=== PATIENT | female | born 1965 | race Caucasian/White ===

== ENCOUNTER 2017-07-25 11:04 | Emergency (ER) | payer OTHER ==
[~2017-07-25] VITALS: Ht 157.5 cm; Wt 72.2 kg
[2017-07-25] MEDS ORDERED: SODIUM CHLORIDE 0.9% 1,000ML IVBOLUS ONE (12:30)
[2017-07-25] MEDS ORDERED: SODIUM CHLORIDE FLUSH 10ML SYR IVF ONE (12:30)
[2017-07-25] MEDS ORDERED: OMNIPAQUE 350 MG/ML, 100ML BOTTLE ONE (13:38)
[2017-07-25] MEDS ORDERED: AMOXICILLIN/CLAV 500-125MG TABLET PO ONE (14:30)
[2017-07-25 14:49] VITALS: BP 110/64
== END 2017-07-25 14:51 | disposition home or self-care (01) ==
LOC: ED 11:53
DX: J02.9 Acute pharyngitis, unspecified (principal); F17.200 Nicotine dependence, unspecified, uncomplicated; Z90.49 Acquired absence of other specified parts of digestive tract; Z90.710 Acquired absence of both cervix and uterus
CPT/HCPCS: 70491; 96360; 99284; J7030; Q9967

== ENCOUNTER 2017-08-04 08:17 | Emergency (ER) | payer OTHER ==
[~2017-08-04] VITALS: Ht 157.5 cm; Wt 70.0 kg
[2017-08-04 08:20] VITALS: BP 150/85
[2017-08-04] MEDS ORDERED: METHOCARBAMOL 750 MG TABLET ONE (09:28)
[2017-08-04] MEDS ORDERED: IBUPROFEN 200 MG TABLET ONE (09:28)
[2017-08-04] MEDS ORDERED: METHOCARBAMOL 750 MG TABLET PO ONE (09:30)
[2017-08-04] MEDS ORDERED: IBUPROFEN 200 MG TABLET PO ONE (09:30)
== END 2017-08-04 10:54 | disposition home or self-care (01) ==
LOC: ED 10:12
DX: S39.012A Strain of muscle, fascia and tendon of lower back, initial encounter (principal); M41.86 Other forms of scoliosis, lumbar region; M47.816 Spondylosis without myelopathy or radiculopathy, lumbar region; J45.909 Unspecified asthma, uncomplicated; X58.XXXA Exposure to other specified factors, initial encounter; Y93.89 Activity, other specified; Y99.8 Other external cause status; Y92.89 Other specified places as the place of occurrence of the external cause
CPT/HCPCS: 72110; 99284; 99285

== ENCOUNTER → 2017-08-14 | Outpatient (CLI) | payer OTHER ==
[~2017-08-14] MED LIST: LIDOCAINE 1%, 20ML ONE; OMNIPAQUE 350 MG/ML, 100ML BOTTLE ONE
== END | disposition home or self-care (01) ==
LOC: RAD 13:22
PROVIDERS: ATTEND Otolaryngology
DX: R59.9 Enlarged lymph nodes, unspecified (principal)
CPT/HCPCS: 70491; 76942; 88173; J3490; Q9967

== ENCOUNTER 2017-08-15 18:54 | Emergency (ER) | payer OTHER ==
[~2017-08-15] VITALS: Ht 157.5 cm; Wt 70.3 kg
[2017-08-15 19:35] LABS: HEMATOCRIT 47.3 % (34.6-47.8); HEMOGLOBIN 15.9 g/dL (11.7-16.4); WHITE BLOOD COUNT 11.7 x10^3/uL (3.4-10)
[2017-08-15 19:51] LABS: BLOOD UREA NITROGEN 9 mg/dL (7-18)
[2017-08-15 19:56] LABS: PATH.CAST-FLAG NOT PRESENT; SPERM-FLAG NOT PRESENT; SRC-FLAG NOT PRESENT; XTAL-FLAG NOT PRESENT; YLC-FLAG NOT PRESENT
[2017-08-15 19:59] LABS: HCG UR OBC PASS
[2017-08-15] MEDS ORDERED: CEFTRIAXONE 1,000 MG IM ONE (20:30)
[2017-08-15] MEDS ORDERED: CEFTRIAXONE 1,000 MG ONE (20:54)
[2017-08-15] MEDS ORDERED: LIDOCAINE 1%, 20ML ONE (20:55)
[2017-08-15 21:31] VITALS: BP 118/79
== END 2017-08-15 21:33 | disposition home or self-care (01) ==
LOC: ED 21:15
DX: N12 Tubulo-interstitial nephritis, not specified as acute or chronic (principal); N39.0 Urinary tract infection, site not specified; J45.909 Unspecified asthma, uncomplicated; F17.200 Nicotine dependence, unspecified, uncomplicated; Z90.49 Acquired absence of other specified parts of digestive tract
CPT/HCPCS: 36415; 80048; 81001; 81025; 82040; 85025; 87077; 87086; 87186; 96372; 99284; J0696

== ENCOUNTER 2017-09-23 16:20 | Emergency (ER) | payer OTHER ==
[~2017-09-23] VITALS: Ht 157.5 cm; Wt 70.8 kg
[2017-09-23 16:22] VITALS: BP 136/84
== END 2017-09-23 18:51 | disposition home or self-care (01) ==
LOC: ED 17:35
DX: N30.00 Acute cystitis without hematuria (principal); R10.2 Pelvic and perineal pain; Z90.49 Acquired absence of other specified parts of digestive tract; Z90.710 Acquired absence of both cervix and uterus; F17.200 Nicotine dependence, unspecified, uncomplicated; J45.909 Unspecified asthma, uncomplicated
CPT/HCPCS: 81001; 87086; 99284

== ENCOUNTER 2021-01-26 12:04 | Emergency (ER) | payer BC, OTHER ==
[~2021-01-26] VITALS: Ht 157.5 cm; Wt 69.4 kg
[2021-01-26 13:32] LABS: MICROSCOPIC AUTO
[2021-01-26 13:39] VITALS: BP 113/43
[2021-01-26] MEDS ORDERED: FLUCONAZOLE 100 MG TABLET PO ONE (14:00)
[2021-01-26 14:04] LABS: CLUE CELLS PRESENT (NONE SEEN)
[2021-01-26 14:05] LABS: WET PREP WBCS NONE SEEN (FEW)
== END 2021-01-26 14:56 | disposition home or self-care (01) ==
LOC: ED 12:33
DX: N76.0 Acute vaginitis (principal); N30.01 Acute cystitis with hematuria; J45.909 Unspecified asthma, uncomplicated; Z88.9 Allergy status to unspecified drugs, medicaments and biological substances; Z90.89 Acquired absence of other organs; Z90.710 Acquired absence of both cervix and uterus
CPT/HCPCS: 81001; 82962; 87086; 87210; 87491; 87591; 87808; 99284

== ENCOUNTER 2021-04-04 19:22 | Emergency (ER) | payer BC ==
[~2021-04-04] VITALS: Ht 157.5 cm; Wt 65.2 kg
--- NOTE | 2021-04-04 20:32 | NUR ---
[employer]: PT. TO ROOM FROM LOBBY AT THIS TIME.
--- NOTE | 2021-04-04 20:33 | NUR ---
pt here because of weird taste in mouth and warm senstion "like when you get medication in an iv". pt states smoking more cigarretts recently from 1 pack to 2 packs a day. some nausea in the morning as well. no vomiting. some diahrrea past couple days. erp at bedside
[2021-04-04] MEDS ORDERED: ONDANSETRON ODT 4 MG ONE (20:45)
[2021-04-04] MEDS ORDERED: ONDANSETRON ODT 4 MG PO ONE (21:00)
[2021-04-04 21:11] LABS: BASOPHILS % (AUTO) 1 % (0-1); EOSINOPHILS % (AUTO) 0 % (1-7); LYMPHOCYTES % (AUTO) 37 % (22-44); MEAN CORPUSCULAR HEMOGLOBIN 30.9 pg (27.0-34.8); MEAN CORPUSCULAR HGB CONC 33.9 g/dL (32.4-35.8); MEAN PLATELET VOLUME 8.3 fL (7.4-10.4); MONOCYTES % (AUTO) 5 % (2-9); NEUTROPHILS % (AUTO) 58 % (42-75); PLATELET COUNT 308 x10^3/uL (130-400); RED BLOOD COUNT 5.23 x10^6/uL (3.82-5.3); RED CELL DISTRIBUTION WIDTH 14.3 % (9.6-15.2)
[2021-04-04 21:13] LABS: MD NO
[2021-04-04 21:24] LABS: ANION GAP 8 mmol/L (5-15); CALCIUM 9.2 mg/dL (8.5-10.1); CHLORIDE 111 mmol/L (98-107)
[2021-04-04 21:36] LABS: ALANINE AMINOTRANSFERASE 20 U/L (12-78); ALKALINE PHOSPHATASE 81 U/L (45-117); BILIRUBIN,TOTAL 0.6 mg/dL (0.2-1.0); CREATININE 0.72 mg/dL (0.55-1.02); T4 (THYROXINE) 12.9 mcg/dL (4.8-13.9); TOTAL PROTEIN 7.3 g/dL (6.4-8.2); TROPONIN I < 0.015 ng/mL (0.000-0.045)
[2021-04-04 22:23] LABS: MICROSCOPIC INDICATED
[2021-04-04 22:40] VITALS: BP 124/67
== END 2021-04-04 23:22 | disposition home or self-care (01) ==
LOC: ED 20:46
DX: R11.2 Nausea with vomiting, unspecified (principal); R19.7 Diarrhea, unspecified; R94.31 Abnormal electrocardiogram [ECG] [EKG]; R07.89 Other chest pain; J45.909 Unspecified asthma, uncomplicated; F17.210 Nicotine dependence, cigarettes, uncomplicated; Z90.89 Acquired absence of other organs; Z90.710 Acquired absence of both cervix and uterus
CPT/HCPCS: 36415; 80053; 81001; 83690; 83735; 84436; 84443; 84484; 85025; 87086; 93005; 99284; 99406; Q0162